=== PATIENT | female | born 1940 | race Caucasian/White ===

== ENCOUNTER 2020-06-06 11:12 | Emergency (ER) | payer MEDICARE, OTHER ==
[~2020-06-06 11:12] MED LIST: AMITIZA8 MCG PO; BENTYL10 MG PO; EVISTA60 MG PO; MYRBETRIQ50 MG PO; NEURONTIN100 MG PO; NEURONTIN300 MG PO; PREMARIN0.3 MG PO; PROTONIX 40MG T40 MG PO; SKELAXIN800 MG PO; ZANTAC150 MG PO; thyroxine
[2020-06-06 12:12] LABS: BASOPHIL 0.6 % (0-2); EOSINOPHIL 1.1 % (0-7); HCT 40.3 % (37.0-47.0); HGB 13.3 g/dl (12.5-16.0); LYMPHOCYTE 28.6 % (15-48); MCH 30.4 pg (25.0-31.0); MONOCYTE 6.1 % (0-12); MPV 9.4 fL (6.0-9.5); NEUTROPHIL 63.4 % (41-80); NRBC 0; PLT 285 K/uL (150-400); RBC 4.38 M/uL (4.20-5.40); RDW 13.2 % (11.5-14.0); WBC 8.7 K/uL (4.0-10.5)
[2020-06-06 12:14] LABS: BILIRUBIN NEGATIVE (NEGATIVE); BLOOD NEGATIVE Ery/uL (NEGATIVE); CLARITY CLEAR (CLEAR); COLOR YELLOW (YELLOW); GLUCOSE (U) NORMAL (NORMAL); LEUKOCYTES NEGATIVE Leu/uL (NEGATIVE); NITRITE NEGATIVE (NEGATIVE); PROTEIN NEGATIVE (NEGATIVE); UROBILINOGEN 0.2 mg/dL (0.2-1.0)
[2020-06-06 12:34] LABS: ALBUMIN 3.8 g/dL (3.4-5.0); BILIRUBIN - TOTAL 0.5 mg/dL (0.2-1.0); BUN/CREAT RATIO (CALC) 33.9 RATIO; CREATININE 0.62 mg/dL (0.51-0.95); GLOBULIN (CALCULATION) 3.9 g/dL; POTASSIUM 4.2 mmol/L (3.5-5.1); TOTAL PROTEIN 7.7 g/dL (6.4-8.2)
[2020-06-06 12:39] LABS: LACTIC ACID 1.4 mmol/L (0.4-1.9)
[2020-07-10] MEDS ORDERED: NEURONTIN100 MG PO (08:45)
[2020-10-10] MEDS ORDERED: NEURONTIN100 MG PO (12:19)
== END 2020-06-06 13:52 | disposition home or self-care (01) ==
LOC: FER 11:12
PROVIDERS: Emergency Medicine
DX: K58.9 Irritable bowel syndrome, unspecified (principal); N83.201 Unspecified ovarian cyst, right side; G20 Parkinson's disease; Z88.2 Allergy status to sulfonamides; Z87.19 Personal history of other diseases of the digestive system; Z79.899 Other long term (current) drug therapy
CPT/HCPCS: 36415; 80053; 81003; 83605; 85025; Q9967

== ENCOUNTER 2020-06-26 13:48 | Emergency (ER) | payer MEDICARE, OTHER ==
[2020-06-26 15:02] LABS: EOSINOPHIL 1.5 % (0-7); HCT 37.9 % (37.0-47.0); HGB 12.6 g/dl (12.5-16.0); LYMPHOCYTE 39.3 % (15-48); MCH 30.4 pg (25.0-31.0); MCHC 33.2 g/dL (32.0-36.0); MCV 91.5 fL (78.0-100.0); MONOCYTE 8.4 % (0-12); MPV 9.5 fL (6.0-9.5); NEUTROPHIL 49.4 % (41-80); NRBC 0; PLT 275 K/uL (150-400); RBC 4.14 M/uL (4.20-5.40); RDW 13.2 % (11.5-14.0); WBC 8.4 K/uL (4.0-10.5)
[2020-06-26 15:28] LABS: ALBUMIN 3.9 g/dL (3.4-5.0); BILIRUBIN - TOTAL 0.3 mg/dL (0.2-1.0); BUN/CREAT RATIO (CALC) 25.7 RATIO; CREATININE 0.7 mg/dL (0.51-0.95); GLOBULIN (CALCULATION) 3.7 g/dL; POTASSIUM 3.7 mmol/L (3.5-5.1); TOTAL PROTEIN 7.6 g/dL (6.4-8.2)
[2020-06-26 15:33] LABS: BILIRUBIN NEGATIVE (NEGATIVE); BLOOD NEGATIVE Ery/uL (NEGATIVE); CLARITY CLEAR (CLEAR); COLOR YELLOW (YELLOW); GLUCOSE (U) NORMAL (NORMAL); LEUKOCYTES NEGATIVE Leu/uL (NEGATIVE); NITRITE NEGATIVE (NEGATIVE); PROTEIN NEGATIVE (NEGATIVE); SPECIFIC GRAVITY 1.025 (1.001-1.030); UROBILINOGEN 0.2 mg/dL (0.2-1.0); pH 5.5 (5.0-9.0)
[2020-06-26] MEDS ORDERED: ASPIRIN EC81 MG PO (15:43)
[2020-07-10] MEDS ORDERED: NEURONTIN100 MG PO (08:45)
[2020-10-10] MEDS ORDERED: NEURONTIN100 MG PO (12:19)
== END 2020-06-26 16:04 | disposition home or self-care (01) ==
LOC: FER 13:48
PROVIDERS: Emergency Medicine
DX: R41.89 Other symptoms and signs involving cognitive functions and awareness (principal); Z88.2 Allergy status to sulfonamides
CPT/HCPCS: 36415; 70450; 80053; 81003; 85025; 93005

== ENCOUNTER → 2021-02-15 | Day surgery (SDC) | payer MEDICARE, OTHER ==
[~2021-02-15] VITALS: Ht 160 cm; Wt 56.7 kg
[~2021-02-15] MED LIST changes: +ACETAMINOPHEN500 M1 PO; +ADRENAL COMPLEX PO; +ASPIRIN EC81 MG PO; +CARBIDOPA-LEVO1 EAC6 PO; +LINZESS72 MCG PO; +MAG-OXIDE 400M400 MG PO; +NEURONTIN300 M1 PO; +STOOL SOFT-STI1 EACH PO; +SUPER ENZYME C1 EACH PO; +SYNTHROID75 MCG PO; +THYROID COMPLEX PO; +VITAMIN E PO; +[UNRECOGNIZED DRUG - OTHER] PO; +[UNRECOGNIZED DRUG - OTHER] PO; +[UNRECOGNIZED DRUG - OTHER] PO
[2021-02-15 10:22] LABS: BILIRUBIN NEGATIVE (NEGATIVE); BLOOD TRACE-INTACT Ery/uL (NEGATIVE); CLARITY CLEAR (CLEAR); COLOR YELLOW (YELLOW); GLUCOSE (U) NORMAL (NORMAL); LEUKOCYTES NEGATIVE Leu/uL (NEGATIVE); NITRITE NEGATIVE (NEGATIVE); PROTEIN NEGATIVE (NEGATIVE); SPECIFIC GRAVITY 1.015 (1.001-1.030); UROBILINOGEN 0.2 mg/dL (0.2-1.0)
[2021-02-15 11:11] LABS: BACTERIA TRACE; URINARY RBC RARE; URINARY WBC RARE
== END | disposition home or self-care (01) ==
LOC: FAS 08:01
PROVIDERS: Student in an Organized Health Care Education/Training Program
DX: K29.50 Unspecified chronic gastritis without bleeding (principal); K31.9 Disease of stomach and duodenum, unspecified; K59.09 Other constipation; N81.6 Rectocele; K62.89 Other specified diseases of anus and rectum; K57.30 Diverticulosis of large intestine without perforation or abscess without bleeding; K58.9 Irritable bowel syndrome, unspecified; K21.00 Gastro-esophageal reflux disease with esophagitis, without bleeding; G20 Parkinson's disease; E03.9 Hypothyroidism, unspecified; F41.9 Anxiety disorder, unspecified; M19.90 Unspecified osteoarthritis, unspecified site; G89.29 Other chronic pain; M54.2 Cervicalgia; M25.551 Pain in right hip; Z88.2 Allergy status to sulfonamides; Z88.8 Allergy status to other drugs, medicaments and biological substances; Z79.899 Other long term (current) drug therapy; Z90.710 Acquired absence of both cervix and uterus; Z98.51 Tubal ligation status; Z80.1 Family history of malignant neoplasm of trachea, bronchus and lung; Z80.3 Family history of malignant neoplasm of breast
CPT/HCPCS: 81001; J2704; J7120

== ENCOUNTER 2021-04-14 11:20 | Emergency (ER) | payer MEDICARE, OTHER ==
[2021-04-14 13:42] LABS: INFLUENZA A NAA NEGATIVE (NEGATIVE)
[2021-04-14 14:02] LABS: CORONAVIRUS 2019 SARS-COV-2 POSITIVE (NEGATIVE)
== END 2021-04-14 14:40 | disposition home or self-care (01) ==
LOC: FER 11:20
PROVIDERS: Nurse Practitioner Family
DX: U07.1 COVID-19 (principal); G20 Parkinson's disease; Z88.2 Allergy status to sulfonamides
CPT/HCPCS: 70450; U0002